=== PATIENT | female | born 1955 ===

== ENCOUNTER 2017-02-03 08:02 | Day surgery (SDC) | payer BC ==
[2014-08-19 11:19] VITALS: BMI 29.2
[2017-02-03] MEDS ORDERED: Midazolam 2 MG/2 ML VIAL ONE (10:50)
[2017-02-03] MEDS ORDERED: Propofol 10 mg/ml Inj (20 ML) ONE (10:50)
--- NOTE | 2017-02-03 12:14 | PCM.SURG1 ---
Surgeon's Initial Post Op Note - Surgeon's Notes Surgeon: Jessica Young MD Putty Tinter Maker: none Type of Anesthesia: General LMA Pre-Operative Diagnosis: Submucosal patient , hx of endometrial hyperplasia Operative Findings: small anteverted uteurs 5-7 wk size, mobile, no adnexal masses, atrophic cervix, uteurs sounded to 5cm, bilateral ostia visualized, small myoma type tissues noted posterior 6 oclock, atrophic endometrium Post-Operative Diagnosis: same as above Operation Performed: Hysteroscopic myomectomy, Fractional dilation and currettage Specimen/Specimens Removed: endocervical currettings, enodmetrial currettins, submuosal myoma Estimated Blood Loss: EBL {In ML}: 5 Blood Products Given: N/A Drains Used: No Drains Post-Op Condition: Good Date of Surgery/Procedure: 02/03/17 Time of Surgery/Procedure: 11:30
--- NOTE | 2017-02-03 13:05 | OP ---
PROCEDURE DATE: 02/03/2017 SURGEON: Dr. Jessica Young. CAREER TECHNOLOGY TEACHER: None. ANESTHESIA: General LMA. PREOPERATIVE DIAGNOSES: Submucosal myoma, history of endometrial hyperplasia. POSTOPERATIVE DIAGNOSES: Submucosal myoma, history of endometrial hyperplasia. OPERATIVE FINDINGS: Small anteverted uterus 5-7 weeks size, ____, no adnexal mass, atrophic cervix, uterus sounded to 5 cm, bilateral ostia visualized, small myoma type tissue noted posterior 6 o'clock less than 1 cm, atrophic endometrium. OPERATIONS PERFORMED: Hysteroscopic myomectomy, fractional dilation and curretage. SPECIMEN REMOVED: Endocervical curetting, endometrial curetting, submucosal myoma. ESTIMATED BLOOD LOSS: 5 mL. BLOOD PRODUCTS: None. COMPLICATIONS: None. DESCRIPTION OF PROCEDURE: The patient was taken to the operating room where she was given general an esthesia. Once found to be adequate, was placed on the operating table in dorsal supine position wit h legs supported using the stirrups. The patient was then prepped and draped in normal sterile fashi on with a timeout to confirm correct patient and correct procedure. Bimanual exam with above-mention ed findings. Red rubber catheter was inserted ____ the urethra to drain the bladder, and 10 mL of cl ear yellow urine was obtained. Following this, the Qiu retractor was placed in the anterior-posteri or fornix of vagina and the cervix ____ adequately visualized. A single tooth tenaculum placed on an terior lip of the cervix and endocervical curettings were obtained and sent to pathology after obtain ing with a Arunian curet. Following this, the uterus was then sounded and the cervix was sequentia lly dilated to allow for introduction of the MyoSure hysteroscope under direct visualization using no rmal saline as the distending media. The hysteroscope was then advanced and bilateral ostia were vis ualized with mucosal myoma type tissue noted posteriorly along the 6 o'clock baseline. The MyoSure d evice was then inserted under direct visualization and the specimen was then carefully resected under direct visualization. Following this, the hysteroscope device was then removed and a gentle curetta ge was done 360 degrees until a gritty texture was noted. Following this, all instruments were remov ed ____ with good hemostasis of the tenaculum puncture sites. All instruments removed. At the end o f the procedure, all needle, sponge and instrument counts were noted to be correct x 2. The patient tolerated the procedure well and was transferred to recovery room in stable condition. Jessica Young MD cc: [id number] TT: 02/03/2017 13:04:57 [email or web address]
[2017-02-03 13:33] VITALS: RESP 18
[2017-02-03] MEDS ORDERED: HYDROmorphone 0.5 mg/0.5 ml ISec IVP PRN (13:33)
[2017-02-03 14:12] VITALS: BP 147/80; PULSE 80; TEMP 97.7; O2SAT 98
== END 2017-02-03 14:00 | disposition home or self-care (01) ==
LOC: C.SDS 08:02
PROVIDERS: ATTEND Obstetrics & Gynecology
DX: D25.0 Submucous leiomyoma of uterus (principal)
CPT/HCPCS: 58561; 88305; J1100; J1885; J2001; J2250; J2405; J2704; J3010